=== PATIENT | male | born 1985 | race Caucasian/White ===

== ENCOUNTER 2020-11-30 07:45 | Day surgery (SDC) | payer OTHER ==
--- NOTE | 2020-11-27 16:19 | NUR ---
PHONE PRE ADMIT COMPLETED TODAY, AND LABS ORDERS FAXED TO [facility] IN [facility].
[~2020-11-30] VITALS: Ht 185.4 cm; Wt 111.4 kg
--- NOTE | ~2020-11-30 | OR ---
[facility] [address], [place] [address] Draft DATE OF OPERATION: 11/30/2020 SURGEON: Abiodun Durán MD PREOPERATIVE DIAGNOSES: Left chronic frontal sinusitis, chronic ethmoiditis, recurring acute sinusitis. POSTOPERATIVE DIAGNOSES: Left chronic frontal sinusitis, chronic ethmoiditis, recurring acute sinusitis, left frontal sinus stenosis. PROCEDURES: 1. Left frontal sinusotomy, 84452. 2. Partial ethmoidectomy with removal of polyp, 48058-80. INDICATIONS: This 35-year-old gentleman had sinus surgery about seven years ago, also was treated for allergies. 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 Since his sinus surgery, which gave him initial relief, he has started having infections again and pressure on the left side both in the cheek and forehead. Endoscopic exam as well as CT scan showed that the left frontal sinus was opacified, it was larger than the very, very small frontal sinus on the right, which was pneumatized normally and the endoscopic exam also showed the patient had grown polyps in around the maxillary sinus and in the ethmoids. He had also demonstrated scarring and focal lateralization of the remnant of the middle turbinates with the frontal sinus being closed off on the left side. This needed immediate surgical revision. PROCEDURE IN DETAIL: The patient was placed in a supine position, had an orotracheal intubation, was placed under general anesthesia. Photographs were taken preop, intraoperative and postoperatively showing the polyps and the area of stenosis with the mucopurulent which was sucked out of the frontal sinus and then the final configuration. Only about a cc and a half total were used of lidocaine 1% and 1:100,000 epinephrine injected focally where the middle turbinate was and the scarring was. An ostium searcher was used after looking at the CT scan and correctly identifying the exact place to push it up into the frontal sinus immediately. There was a little bit of mucopus. This was cut away with a Thru-Cut ethmoid punch. The [place] frontal sinus punch and all of the fragments of bone removed, that part of the middle turbinate removed right up to the ostium of the frontal sinus and is open as widely as possible without stripping mucosa but tried to cut it cleanly so to reduce the chances of restenoses. This will be followed closely in PATIENT NAME: GIOVANNA SANTA OPERATIVE REPORT DATE OF : 87 REPORT #: [id number] PHYSICIAN: ABIODUN DURÁN MD PCP: JAYDON VELÁZQUEZ REPORT IS CONFIDENTIAL AND NOT TO BE RELEASED WITHOUT AUTHORIZATION [facility] [address], [place] [address] Draft the clinic to make sure it does not try to restenoses. Then with the Thru-Cut ethmoid punch, the pediatric Risa forceps and the microdebrider polyps were shaved off the ethmoid labyrinth. The posterior maxillary wall on the right side or the posterior edge of the ostium was removed joining it up with deep supramaxillary posterior ethmoid air cell which was kind of deep. Sphenoids were untouched, they were excellent. The ethmoid mucosa was shaved as it had been secondary to polyps and polypoid mucosa. Also, a little bit of the anterior fontanelle was redone on the left maxillary sinus to make sure that drained adequately. There were no polyps present in the maxillary sinuses and that terminated the surgery. The patient was awakened and sent to recovery in good condition. Estimated blood loss was between 50 and 75 cc. No packing required. Abiodun Durán MD [facility] /[id number] Copies: ~ PATIENT NAME: GIOVANNA SANTA OPERATIVE REPORT DATE OF : 87 REPORT #: [id number] PHYSICIAN: ABIODUN DURÁN MD PCP: JAYDON VELÁZQUEZ REPORT IS CONFIDENTIAL AND NOT TO BE RELEASED WITHOUT AUTHORIZATION
[~2020-11-30 07:45] MED LIST: AMOXICILLIN500 MG PO; CLARITIN10 MG PO; MULTI VITAMIN1 EACH PO; PROBENECID500 MG; PROBIOTIC1 EAC1 PO
[2020-11-30] MEDS ORDERED: ZYRTEC10 MG PO ×2 (08:08)
--- NOTE | 2020-11-30 12:10 | NUR ---
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 PT HEAD REPOSITIONED AND PILLOW REMOVED. LARGER AIRWAY PLACED WITH NASAL AIRWAY IN MOUTH TO MAINTAIN AIRWAY. PILLOW REPLACED. JAW THRUST NO LONGER NEEDED TO MAINTAIN AIRWAY. VSS. RESP EVEN AND UNLABORED.
--- NOTE | 2020-11-30 13:01 | NUR ---
DRIP PAD CHANGED AT 1235 DURING REPORT. FULLY SATURATED BY 1255 AND DRIP PAD CHANGED AGAIN.
--- NOTE | 2020-11-30 13:50 | NUR ---
1342: MOUSTACHE DRESSING CHANGED. DRAINAGE MOSTLY FROM LEFT NOSTRIL. 1347: VS CHECKED. DENIES PAIN. IV SALINE LOCKED. FATHER AT BEDSIDE. CALL LIGHT WITHIN REACH.
--- NOTE | 2020-11-30 14:39 | NUR ---
STEADY ON FEET WITH ONE PERSON STAND BY ASSIST FOR AMBULATION TO BR. CONTINUES TO DENY PAIN OR NAUSEA. VOIDS UNMEASURED URINE. DRIP PAD CHANGED 6 TIMES IN THE LAST HOUR. IT WAS FULLY SATURATED WITH BLOOD AT EACH CHANGE. MD UPDATED ON STATUS. NO NEW ORDERS. CLARIFIED ORDER FOR PATIENT TO START SINUS RINSING TOMORROW.
== END 2020-11-30 14:35 | disposition home or self-care (01) ==
LOC: DS 07:45 → OPS 07:45 → DS 09:15 → OPS 14:35
PROVIDERS: ATTEND Otolaryngology
PROC: 09BV8ZZ Excision of Left Ethmoid Sinus, Via Natural or Artificial Opening Endoscopic (ICD-10-PCS; 2020-11-30)
PROC: 09BU8ZZ Excision of Right Ethmoid Sinus, Via Natural or Artificial Opening Endoscopic (ICD-10-PCS; 2020-11-30)
PROC: 09QT8ZZ Repair Left Frontal Sinus, Via Natural or Artificial Opening Endoscopic (ICD-10-PCS; principal; 2020-11-30 09:15)
DX: J32.1 Chronic frontal sinusitis (principal); J32.2 Chronic ethmoidal sinusitis; J01.91 Acute recurrent sinusitis, unspecified; J33.8 Other polyp of sinus; J34.89 Other specified disorders of nose and nasal sinuses; E66.9 Obesity, unspecified; F17.220 Nicotine dependence, chewing tobacco, uncomplicated; Z88.1 Allergy status to other antibiotic agents; Z88.2 Allergy status to sulfonamides; Z68.32 Body mass index [BMI] 32.0-32.9, adult
CPT/HCPCS: 00160; J0330; J1100; J1885; J2250; J2405; J2704; J2765; J3010; J7030; J7121